=== PATIENT | female | born 1950 | race Caucasian/White ===

== ENCOUNTER → 2018-12-27 | Outpatient (CLI) | payer OTHER ==
[~2018-12-27] MED LIST: ACCUNEB SO1.25 MG/1 INH; BREO ELLIPTA 11 EACH IH; CARAFATE 1 GM TA1 G1 PO; COLON HERBAL C1 EACH; CYMBALTA60 MG PO; GAVISCON LIQUI355 ML; LEVOTHYROXINE 0.1 MG PO; LEVOTHYROXINE0.05 MG PO; LIDODERM 5%1 PATC1 TRANSDERM; LIPITOR10 MG PO; MOBIC7.5 MG PO; NEURONTIN600 MG PO; NORCO 5-325 TA1 EACH PO; NORTRIPTYLINE H10 M1 PO; OMEPRAZOLE 20 M20 MG PO; PREDNISONE 10 M10 MG PO; PREDNISONE50 MG PO; PROTONIX40 M1 PO; SINGULAIR 10 MG10 M1 PO; TRAMADOL 50 MG50 MG PO; VOLTAREN GEL 1100 G2 TOP
== END ==
LOC: CAT 11:25
DX: Z13.6 Encounter for screening for cardiovascular disorders (principal); E78.00 Pure hypercholesterolemia, unspecified; I25.10 Atherosclerotic heart disease of native coronary artery without angina pectoris